=== PATIENT | female | born 1995 | race Caucasian/White ===

== ENCOUNTER 2017-06-25 17:10 | Emergency (ER) | payer OTHER ==
[~2017-06-25] VITALS: Ht 157.5 cm; Wt 60.2 kg
[2017-06-25] MEDS ORDERED: MORPHINE SULFATE 4 MG/ML, 1ML ONE ×2 (18:19→19:40)
[2017-06-25] MEDS ORDERED: ONDANSETRON 2MG/ML, 2ML ONE (18:19)
[2017-06-25] MEDS: MORPHINE SULFATE 4 MG/ML, 1ML IVPush PRN ×2 (18:23→19:45)
[2017-06-25] MEDS ORDERED: SODIUM CHLORIDE 0.9% 1,000ML IVBOLUS ONE (18:30)
[2017-06-25] MEDS ORDERED: SODIUM CHLORIDE FLUSH 10ML SYR IVF ONE (18:30)
[2017-06-25] MEDS ORDERED: ONDANSETRON 2MG/ML, 2ML IVPush ONE (18:30)
[2017-06-25 18:55] LABS: HEMATOCRIT 45.7 % (34.6-47.8); WHITE BLOOD COUNT 10.2 x10^3/uL (4.5-13.2)
[2017-06-25 19:02] LABS: ASPARTATE AMINO TRANSFERASE 167 U/L (15-37); BLOOD UREA NITROGEN 13 mg/dL (7-18)
[2017-06-25 19:36] VITALS: BP 90/52
[2017-06-25] MEDS ORDERED: AZITHROMYCIN 500 MG TABLET ONE (20:27)
[2017-06-25] MEDS ORDERED: CEFTRIAXONE 250 MG ONE (20:28)
[2017-06-25] MEDS ORDERED: AZITHROMYCIN 500 MG TABLET PO ONE (20:30)
[2017-06-25] MEDS ORDERED: CEFTRIAXONE 250 MG IM ONE (20:30)
== END 2017-06-25 21:22 | disposition home or self-care (01) ==
LOC: ED 21:10
DX: R10.84 Generalized abdominal pain (principal); N73.0 Acute parametritis and pelvic cellulitis; N76.0 Acute vaginitis; Z90.49 Acquired absence of other specified parts of digestive tract
CPT/HCPCS: 36415; 76700; 76830; 80053; 81001; 83690; 84703; 85025; 87086; 87210; 87491; 87591; 87808; 96361; 96372; 96374; 96375; 96376; 99285; J0696; J2405; J7030

== ENCOUNTER 2017-09-12 11:53 | Emergency (ER) | payer MEDICAID, OTHER ==
[~2017-09-12] VITALS: Ht 157.5 cm; Wt 58.2 kg
[2017-09-12 12:01] VITALS: BP 105/70
[2017-09-12 12:53] LABS: HEMATOCRIT 42.7 % (34.6-47.8); HEMOGLOBIN 14.2 g/dL (11.7-16.4); WHITE BLOOD COUNT 14.1 x10^3/uL (4.5-13.2)
[2017-09-12 13:06] LABS: ASPARTATE AMINO TRANSFERASE 16 U/L (15-37); BLOOD UREA NITROGEN 7 mg/dL (7-18)
[2017-09-12] MEDS ORDERED: KETOROLAC 30 MG/1 ML ONE (13:55)
[2017-09-12] MEDS ORDERED: KETOROLAC 30 MG/1 ML IVPush ONE (14:00)
== END 2017-09-12 16:26 | disposition home or self-care (01) ==
LOC: ED 16:24
DX: N83.291 Other ovarian cyst, right side (principal)
CPT/HCPCS: 36415; 76830; 80053; 81001; 83690; 84703; 85025; 96374; 99285; J1885

== ENCOUNTER 2017-09-25 13:17 | Emergency (ER) | payer MEDICAID ==
[~2017-09-25] VITALS: Ht 157.5 cm; Wt 59.2 kg
[2017-09-25 13:19] VITALS: BP 119/77
[2017-09-25] MEDS ORDERED: LIDOCAINE 1%, 20ML ONE ×2 (14:27→14:28)
[2017-09-25] MEDS ORDERED: LIDOCAINE 1%, 20ML SQ ONE (14:30)
== END 2017-09-25 14:51 | disposition home or self-care (01) ==
LOC: ED 14:45
DX: L02.415 Cutaneous abscess of right lower limb (principal)
CPT/HCPCS: 10060; 99283

== ENCOUNTER 2017-09-27 09:27 | Emergency (ER) | payer MEDICAID ==
[~2017-09-27] VITALS: Ht 157.5 cm; Wt 60.0 kg
[2017-09-27 09:29] VITALS: BP 129/78
[2017-09-27] MEDS ORDERED: BACITRACIN ZINC OINT 500U/GM, 0.9 GM ONE (11:39)
== END 2017-09-27 11:50 | disposition home or self-care (01) ==
LOC: ED 11:10
DX: Z48.01 Encounter for change or removal of surgical wound dressing (principal)
CPT/HCPCS: 99283

== ENCOUNTER 2017-10-05 12:51 | Emergency (ER) | payer MEDICAID ==
[~2017-10-05] VITALS: Ht 157.5 cm; Wt 58.9 kg
[2017-10-05] MEDS ORDERED: MORPHINE SULFATE 4 MG/ML, 1ML ONE (14:27)
[2017-10-05] MEDS ORDERED: ONDANSETRON 2MG/ML, 2ML ONE (14:28)
[2017-10-05] MEDS ORDERED: DICYCLOMINE 20 MG TABLET PO ONE (14:30)
[2017-10-05] MEDS ORDERED: ONDANSETRON 2MG/ML, 2ML IVPush ONE (14:30)
[2017-10-05] MEDS ORDERED: SODIUM CHLORIDE 0.9% 1,000ML IVBOLUS ONE (14:30)
[2017-10-05] MEDS ORDERED: SODIUM CHLORIDE FLUSH 10ML SYR IVF ONE (14:30)
[2017-10-05] MEDS: MORPHINE SULFATE 4 MG/ML, 1ML IVPush PRN ×2 (14:42→15:00)
[2017-10-05 14:53] LABS: BASOPHILS % (AUTO) 0 % (0-1); EOSINOPHILS # (AUTO) 0.06 x10^3/uL (0-0.8); EOSINOPHILS % (AUTO) 1 % (1-7); LYMPHOCYTES # (AUTO) 1.46 x10^3/uL (1-6.1); LYMPHOCYTES % (AUTO) 13 % (22-44); MD NO; MEAN CORPUSCULAR HGB CONC 32.8 g/dL (32.4-35.8); MEAN CORPUSCULAR VOLUME 85.3 fL (80-100); MEAN PLATELET VOLUME 9.4 fL (7.4-10.4); MONOCYTES # (AUTO) 1.11 x10^3/uL (0-1.4); MONOCYTES % (AUTO) 10 % (2-9); NEUTROPHILS # (AUTO) 8.86 x10^3/uL (1.8-8.0); NEUTROPHILS % (AUTO) 77 % (42-75); PLATELET COUNT 382 x10^3/uL (130-400); RED BLOOD COUNT 4.82 x10^6/uL (3.82-5.3); RED CELL DISTRIBUTION WIDTH 15.5 % (9.6-15.2)
[2017-10-05 15:01] LABS: ALBUMIN 3.5 g/dL (3.4-5.0); ANION GAP 8 mmol/L (5-15); CHLORIDE 106 mmol/L (98-107)
[2017-10-05 15:07] LABS: ALANINE AMINOTRANSFERASE 18 U/L (12-78); ALKALINE PHOSPHATASE 60 U/L (45-117); BILIRUBIN,TOTAL 0.5 mg/dL (0.2-1.0); CREATININE 0.79 mg/dL (0.55-1.02); TOTAL PROTEIN 7.4 g/dL (6.4-8.2)
[2017-10-05 15:09] LABS: MICROSCOPIC INDICATED
[2017-10-05 15:20] LABS: CULTURE INDICATED? YES
[2017-10-05] MEDS ORDERED: POTASSIUM CHLORIDE 20 MEQ TAB.ER.PRT PO ONE (15:30)
[2017-10-05] MEDS ORDERED: POTASSIUM CHLORIDE 20 MEQ TAB.ER.PRT ONE (16:04)
[2017-10-05] MEDS ORDERED: PROMETHAZINE 25 MG/ML, 1ML IM ONE (16:30)
[2017-10-05 16:39] VITALS: BP 96/51
== END 2017-10-05 16:43 | disposition home or self-care (01) ==
LOC: ED 16:37
DX: E87.6 Hypokalemia (principal); R10.84 Generalized abdominal pain; R11.2 Nausea with vomiting, unspecified; R19.7 Diarrhea, unspecified
CPT/HCPCS: 36415; 80053; 81001; 83690; 84703; 85025; 87086; 96361; 96374; 96375; 99284; J2405; J7030

== ENCOUNTER 2018-08-18 22:12 | Emergency (ER) | payer MEDICAID ==
[~2018-08-18] VITALS: Ht 157.5 cm; Wt 65.7 kg
[2018-08-18 22:16] VITALS: BP 128/93
[2018-08-18] MEDS ORDERED: CYCLOBENZAPRINE 10 MG TABLET PO STA (22:48)
[2018-08-18] MEDS ORDERED: IBUPROFEN 200 MG TABLET ONE (22:55)
[2018-08-18] MEDS ORDERED: CYCLOBENZAPRINE 10 MG TABLET ONE (22:55)
[2018-08-18] MEDS ORDERED: IBUPROFEN 200 MG TABLET PO ONE (23:00)
== END 2018-08-19 00:35 | disposition home or self-care (01) ==
LOC: ED 22:40
DX: M54.6 Pain in thoracic spine (principal); F17.210 Nicotine dependence, cigarettes, uncomplicated
CPT/HCPCS: 72072; 99284

== ENCOUNTER 2019-02-28 16:28 | Emergency (ER) | payer SELFPAY ==
[~2019-02-28] VITALS: Ht 157.5 cm; Wt 63.5 kg
[2019-02-28 17:26] LABS: BASOPHILS # (AUTO) 0.16 x10^3/uL (0-0.1); BASOPHILS % (AUTO) 2 % (0-1); EOSINOPHILS # (AUTO) 0.38 x10^3/uL (0-0.4); EOSINOPHILS % (AUTO) 4 % (1-7); LYMPHOCYTES # (AUTO) 3.16 x10^3/uL (1-3.4); LYMPHOCYTES % (AUTO) 30 % (22-44); MD NO; MEAN CORPUSCULAR HEMOGLOBIN 25.8 pg (27.0-34.8); MEAN CORPUSCULAR HGB CONC 31.8 g/dL (32.4-35.8); MEAN CORPUSCULAR VOLUME 81.1 fL (80-100); MEAN PLATELET VOLUME 9.3 fL (7.4-10.4); MONOCYTES # (AUTO) 0.77 x10^3/uL (0.2-0.8); MONOCYTES % (AUTO) 7 % (2-9); NEUTROPHILS # (AUTO) 5.93 x10^3/uL (1.8-6.8); NEUTROPHILS % (AUTO) 57 % (42-75); PLATELET COUNT 487 x10^3/uL (130-400); RED BLOOD COUNT 5.18 x10^6/uL (3.82-5.3); RED CELL DISTRIBUTION WIDTH 16.1 % (9.6-15.2)
[2019-02-28 17:33] LABS: ALANINE AMINOTRANSFERASE 17 U/L (12-78); ANION GAP 9 mmol/L (5-15); CALCIUM 9.3 mg/dL (8.5-10.1); CHLORIDE 106 mmol/L (98-107); CREATININE 0.85 mg/dL (0.55-1.02)
[2019-02-28 17:37] LABS: ALKALINE PHOSPHATASE 77 U/L (45-117); BILIRUBIN,TOTAL 0.1 mg/dL (0.2-1.0); TOTAL PROTEIN 8.1 g/dL (6.4-8.2)
[2019-02-28 17:38] LABS: MICROSCOPIC NOT IND
[2019-02-28 17:43] LABS: CULTURE INDICATED? NO
--- NOTE | 2019-02-28 18:11 | NUR ---
AVIONICS REPAIR TECHNICIAN: PT TO ROOM FROM LOBBY, UPRIGHT STEADY GAIT
[2019-02-28] MEDS ORDERED: ONDANSETRON ODT 4 MG ONE (18:27)
[2019-02-28] MEDS ORDERED: MAALOX/HYOSCYAMINE/LIDOCAINE 45 ML BTL ONE (18:27)
[2019-02-28] MEDS ORDERED: ONDANSETRON ODT 4 MG PO ONE (18:30)
[2019-02-28] MEDS ORDERED: MAALOX/HYOSCYAMINE/LIDOCAINE 45 ML BTL PO ONE (18:30)
--- NOTE | 2019-02-28 18:37 | NUR ---
pt in bed at this time. pt medicated per order. pt instructed to notify this rn if any changes in the pain after medications.
[2019-02-28 19:10] VITALS: BP 125/90
== END 2019-02-28 19:28 | disposition home or self-care (01) ==
LOC: ED 19:00
DX: R10.12 Left upper quadrant pain (principal); Z90.49 Acquired absence of other specified parts of digestive tract
CPT/HCPCS: 36415; 80053; 81003; 83690; 84703; 85025; 99283; Q0162

== ENCOUNTER 2019-04-09 16:24 | Emergency (ER) | payer SELFPAY ==
[~2019-04-09] VITALS: Ht 157.5 cm; Wt 62.0 kg
--- NOTE | 2019-04-09 16:36 | NUR ---
TASK RN: 23 Y/O FEMALE PRESENTS TO ED WITH C/O ABDOMINAL PAIN. PER PT "IT JUST STARTED IN THE LAST HALF HOUR. I HAVE A REALLY BAD BURNING PAIN IN MY BELLY. I DON'T KNOW WHAT IT IS. IT HURTS REALLY BAD." PT AMBULATORY WITH STEADY GAIT TO BATHROOM TO TRY AND PROVIDE UA. FAMILY BEDSIDE.
[2019-04-09] MEDS ORDERED: ONDANSETRON ODT 4 MG ONE (16:49)
[2019-04-09] MEDS ORDERED: ACETAMINOPHEN 325 MG TABLET ONE (16:49)
--- NOTE | 2019-04-09 16:52 | NUR ---
TASK RN: PT BACK FROM BATHROOM. UA WALKED TO LAB. PT PLACED ON CONT PULSE OX,NIBP. PT STATES TO EDMD "THE PAIN HAS BEEN FOR AN HOUR AND A HALF." NO C/O HEMATURIA, DYSURIA, V/D, TRAUMA, SYNCOPE, CP. FAMILY BEDSIDE. PT ALSO DENIES NO NEW SEXUAL PARTNERS OR HX OF STD
--- NOTE | 2019-04-09 16:54 | NUR ---
BEDSIDE REPORT TO MAXIME ALLAN
[2019-04-09 17:00] LABS: BASOPHILS # (AUTO) 0.07 x10^3/uL (0-0.1); BASOPHILS % (AUTO) 1 % (0-1); EOSINOPHILS # (AUTO) 0.26 x10^3/uL (0-0.4); EOSINOPHILS % (AUTO) 4 % (1-7); LYMPHOCYTES # (AUTO) 3.32 x10^3/uL (1-3.4); LYMPHOCYTES % (AUTO) 44 % (22-44); MD NO; MEAN CORPUSCULAR HEMOGLOBIN 26.1 pg (27.0-34.8); MEAN CORPUSCULAR HGB CONC 32.1 g/dL (32.4-35.8); MEAN CORPUSCULAR VOLUME 81.3 fL (80-100); MEAN PLATELET VOLUME 8.8 fL (7.4-10.4); MONOCYTES # (AUTO) 0.55 x10^3/uL (0.2-0.8); MONOCYTES % (AUTO) 7 % (2-9); NEUTROPHILS # (AUTO) 3.33 x10^3/uL (1.8-6.8); NEUTROPHILS % (AUTO) 44 % (42-75); PLATELET COUNT 404 x10^3/uL (130-400); RED BLOOD COUNT 4.47 x10^6/uL (3.82-5.3); RED CELL DISTRIBUTION WIDTH 16.1 % (9.6-15.2)
[2019-04-09] MEDS ORDERED: ONDANSETRON ODT 4 MG PO ONE (17:00)
[2019-04-09] MEDS ORDERED: ACETAMINOPHEN 325 MG TABLET PO ONE (17:00)
[2019-04-09 17:07] LABS: MICROSCOPIC NOT IND
[2019-04-09 17:12] LABS: ALANINE AMINOTRANSFERASE 22 U/L (12-78); ALBUMIN 3.8 g/dL (3.4-5.0); ANION GAP 6 mmol/L (5-15); CALCIUM 8.9 mg/dL (8.5-10.1); CHLORIDE 110 mmol/L (98-107); CREATININE 0.74 mg/dL (0.55-1.02)
[2019-04-09 17:12] LABS: CULTURE INDICATED? NO
[2019-04-09 17:16] LABS: ALKALINE PHOSPHATASE 63 U/L (45-117); BILIRUBIN,TOTAL 0.2 mg/dL (0.2-1.0); TOTAL PROTEIN 7.2 g/dL (6.4-8.2)
[2019-04-09 18:19] VITALS: BP 106/60
== END 2019-04-09 18:45 | disposition home or self-care (01) ==
LOC: ED 18:39
DX: N83.292 Other ovarian cyst, left side (principal); R10.32 Left lower quadrant pain; F17.200 Nicotine dependence, unspecified, uncomplicated; Z90.49 Acquired absence of other specified parts of digestive tract
CPT/HCPCS: 36415; 76830; 80053; 81003; 83690; 84703; 85025; 99284; Q0162